=== PATIENT | female | born 1930 | race Caucasian/White ===

== ENCOUNTER 2017-01-19 12:00 | Day surgery (SDC) | payer MEDICARE, BC ==
[~2017-01-19] VITALS: Ht 160 cm; Wt 52.3 kg
[~2017-01-19 12:00] MED LIST: ACIPHEX20 MG PO; BENADRYL25 M2 PO; CALTRATE 600 +1 TAB PO; EVISTA PO; EVISTA60 MG PO; FOSAMAX 10M10 MG/TAB PO; HYCET SOLN PO; LEADER CLE17 GM/Dose PO; LEVBID0.375 MG PO; MIRAPEX0.25 MG PO; PILOCARPINE PO; PROTONIX20 MG PO; RECLAST5 MG/100 M IV
[2017-01-19] MEDS ORDERED: CALCIUM-500 5001 CTB PO (13:10)
[2017-01-19] MEDS ORDERED: MIRAPEX 0.0.125 MG/T PO (13:11)
[2017-01-19] MEDS ORDERED: ISOSOURCE 1.51000 M1 PEG (13:11)
[2017-01-19] MEDS ORDERED: MIRAPEX0.25 MG PO (13:12)
[2017-01-19] MEDS ORDERED: SALAGEN 5MG TAB5 MG PO (13:13)
[2017-01-19] MEDS ORDERED: ZYRTEC 10MG10 MG PEG (13:14)
[2017-01-19] MEDS ORDERED: ZANTAC 150MG T150 MG PEG (13:14)
[2017-01-19] MEDS ORDERED: NYSTATIN OR100 MU/ML PO (13:17)
[2017-01-19 13:28] VITALS: BP 132/55; PULSE 72; TEMP 98.2
[2017-01-19 15:24] LABS: PH 7 (5-8); SQUAMOUS EPITHELIAL 0-2 /hpf; URINE APPEARANCE Clear; URINE BACTERIA None Seen /hpf; URINE BILIRUBIN Negative (NEGATIVE); URINE BLOOD 3+ (NEGATIVE); URINE COLOR Straw; URINE GLUCOSE Negative (NEGATIVE); URINE KETONE Negative (NEGATIVE); URINE RBC >50 /hpf; URINE UROBILINOGEN Negative (NEGATIVE)
== END 2017-01-19 15:00 | disposition home or self-care (01) ==
LOC: SDCO 12:00
PROVIDERS: Urology
DX: N31.9 Neuromuscular dysfunction of bladder, unspecified (principal); N21.0 Calculus in bladder; R33.9 Retention of urine, unspecified; K21.9 Gastro-esophageal reflux disease without esophagitis; M19.90 Unspecified osteoarthritis, unspecified site; M11.20 Other chondrocalcinosis, unspecified site; M81.0 Age-related osteoporosis without current pathological fracture; Z85.118 Personal history of other malignant neoplasm of bronchus and lung

== ENCOUNTER 2017-03-24 11:45 | Emergency (ER) | payer MEDICARE, BC ==
[~2017-03-24] VITALS: Ht 160 cm; Wt 50.0 kg
[~2017-03-24 11:45] MED LIST changes: +CALCIUM-500 5001 CTB PO; +ISOSOURCE 1.51000 M1 PEG; +MIRAPEX 0.0.125 MG/T PO; +NYSTATIN OR100 MU/ML PO; +SALAGEN 5MG TAB5 MG PO; +ZANTAC 150MG T150 MG PEG; +ZYRTEC 10MG10 MG PEG
[2017-03-24 11:47] VITALS: BP 135/65; PULSE 76; TEMP 98
== END 2017-03-24 12:21 | disposition home or self-care (01) ==
LOC: COL.ER 11:45
DX: Z43.1 Encounter for attention to gastrostomy (principal); Z46.89 Encounter for fitting and adjustment of other specified devices

== ENCOUNTER 2017-06-29 13:10 | Observation (INO) | payer MEDICARE, BC ==
[2017-06-29] VITALS (10 sets, daily range): BP systolic 98–123; BP diastolic 43–93; PULSE 71–88; TEMP 97.5–98.5
[~2017-06-29] VITALS: Ht 160 cm; Wt 50.0 kg
[2017-06-29] MEDS ORDERED: MIRAPEX 0.0.125 MG/T PO (14:38)
[2017-06-29] MEDS ORDERED: RESTASIS 60VL OP (14:39)
[2017-06-29] MEDS ORDERED: TRIAMC 0.1 454 TOP (14:41)
[2017-06-29] MEDS ORDERED: BENADRYL E2.5 MG/1 M PEG (14:42)
[2017-06-29] MEDS ORDERED: MIRAPEX0.25 MG PO (14:44)
[2017-06-30 04:00] VITALS: BP 95/47; PULSE 82; TEMP 97.3
[2017-06-30 09:37] VITALS: BP 110/55; BP 89/49; PULSE 75; TEMP 97
[2017-06-30 14:30] VITALS: BP 95/40; PULSE 85; TEMP 98.4
== END 2017-06-30 16:10 | disposition home or self-care (01) ==
LOC: SDCO 13:10 → SURG 17:10
DX: N32.89 Other specified disorders of bladder (principal); N31.9 Neuromuscular dysfunction of bladder, unspecified; R33.9 Retention of urine, unspecified; K21.9 Gastro-esophageal reflux disease without esophagitis; D64.9 Anemia, unspecified; M19.90 Unspecified osteoarthritis, unspecified site; M81.0 Age-related osteoporosis without current pathological fracture; Z85.118 Personal history of other malignant neoplasm of bronchus and lung; Z82.49 Family history of ischemic heart disease and other diseases of the circulatory system; Z80.42 Family history of malignant neoplasm of prostate; Z80.52 Family history of malignant neoplasm of bladder
CPT/HCPCS: C1769; G0378; J0585; J0690; J1100; J1170; J2270; J2405; J2704; J3010; J7120

== ENCOUNTER 2018-09-23 10:50 | Inpatient (IN) | payer MEDICARE, BC ==
[~2018-09-23] VITALS: Ht 160 cm; Wt 50.2 kg
[~2018-09-23 10:50] MED LIST changes: +BENADRYL E2.5 MG/1 M PEG; +RESTASIS 60VL OP; +TRIAMC 0.1 454 TOP
[2018-09-23 12:24] VITALS: BP 93/46; PULSE 96; TEMP 98.7
[2018-09-23] MEDS ORDERED: NEURONTIN300 MG/CAP PO (12:33)
[2018-09-23] MEDS ORDERED: ZITHROMAX 250M250 MG PO (12:33)
[2018-09-23] MEDS ORDERED: ATARAX 25MG25 MG/TAB PO ×2 (12:36→12:37)
[2018-09-23] MEDS ORDERED: TYLENOL 500MG500 MG PO (12:39)
[2018-09-23] MEDS ORDERED: MUCINEX 60600 MG/TA1 (12:41)
--- NOTE | 2018-09-23 13:24 | NUR ---
Patient is alert and oriented. PEG tube was leaking upon arrival, reinforced with gauze. Suprapubic catheter is draining adequately. Patient attempts to clear throat of phlegm, able to get small amount of pink think phlegm out. Suction at bedside. VSS. No O2 needed. Call light within reach and will continue to monitor closely. Awaiting orders from
[2018-09-23 15:46] VITALS: BP 128/68; PULSE 94; TEMP 97.8
--- NOTE | 2018-09-23 17:45 | NUR ---
Fax was sent through pharmacy scanner to have azactam and vancomycin verified by pharmacy before giving these medications. Awaiting response or verification from pharmacy.
--- NOTE | 2018-09-23 19:18 | NUR ---
Patient continues to attempt to cough up phlegm stuck in throat. Suction attempted, but nothing was suctioned. Droplet precautions in place. Patient denies pain. VSS. Patient transferred down for CT prior to shift change. Report given to TRESSA Vazquez.
--- NOTE | 2018-09-23 20:30 | NUR ---
Patient returns from radiology, IV antibiotics ordered earlier in the day are initiated per orders after clarifying with hospitalist. Patient has a significant cough and is producing thick pink mucous with her cough. Patient is alert and oriented, but is unable to move independently due to chronic disease. Feet and legs are moderatly contracted, hands are mostly contracted as well but patient still has some use of her fingers, is able to use soft touch call light. Peg tube in place is clamped, patient usually recieves bolus tube feedings, but is currently NPO for procedure tomorrow. 0ml residual prior to medication administration. Superpubic catheter in place, patient reports it was last changed on or around 09/15/18. Patient denies further needs at this time, call light within reach.
[2018-09-23 21:45] VITALS: BP 142/82; PULSE 112; TEMP 97.8
[2018-09-23 23:25] VITALS: BP 119/72; PULSE 102; TEMP 97.8
[2018-09-24] VITALS (7 sets, daily range): BP systolic 115–145; BP diastolic 68–78; PULSE 66–109; TEMP 97.4–97.9
--- NOTE | 2018-09-24 05:15 | NUR ---
Patient has rested little overnight. Patient continues to have a cough, although it seems to have lessened in severity. Patient continues to have thick pink speutum periodically. Patient remains NPO per order. Patient repositioned several times overnight for comfort. Patient denies pain at this time, soft touch call light within reach.
--- NOTE | 2018-09-24 07:00 | NUR ---
awake resting in bed, bedside shift report received from TRESSA Vazquez
[2018-09-24 07:17] LABS: MEAN CELL VOLUME 85 fl (80.0-100.0); MEAN CORPUSCULAR HGB CONC 33 g/dl (33.0-37.0); MEAN PLATELET VOLUME 8.1 fl (7.4-10.4); PLATELET COUNT 372 K/mm3 (130-400); RED BLOOD COUNT 3.58 M/mm3 (4.10-5.30); REDCELL DISTRIBUTION WIDTH-CV 14.2 % (11.5-14.5)
[2018-09-24 07:23] LABS: BILIRUBIN,TOTAL 0.3 mg/dL (0.0-1.0); CALCIUM 8.9 mg/dL (8.4-10.2); CREATININE, serum 0.26 mg/dL (0.52-1.25); HEMATOCRIT 30.3 % (37.0-47.0); HEMOGLOBIN 9.9 g/dl (12.5-16.0); MEAN CORPUSCULAR HEMOGLOBIN 28 pg (27.0-31.0); POTASSIUM 3.7 mmol/L (3.4-5.0); TOTAL PROTEIN 7.2 gm/dL (6.4-8.2)
[2018-09-24 08:08] LABS: BAND 15 % (0-10); LYMPHOCYTE 8 % (20.0-51.0); NEUTROPHILS 77 % (42.0-75.2)
[2018-09-24 08:10] LABS: PLATELET ESTIMATE NORMAL (NORMAL)
--- NOTE | 2018-09-24 08:20 | NUR ---
resting in bed watching TV, assisted her with taking sips of water and rinsing out her mouth, denies other needs
--- NOTE | 2018-09-24 09:07 | NUR ---
Dr Rainey and care team in to see patient
--- NOTE | 2018-09-24 09:15 | NUR ---
spoke with "Rogers" and will not plan to do bronchoscopy and ok to let her take meds and have feedings, speech therapy notified
--- NOTE | 2018-09-24 09:15 | NUR ---
meds given per peg tube, vascular lab in to complete echo
--- NOTE | 2018-09-24 10:14 | NUR ---
dietitian in to visit with patient
--- NOTE | 2018-09-24 10:42 | NUR ---
physical therapy in to work with patient, sitting up on side of bed exercises with therapist
--- NOTE | 2018-09-24 10:45 | NUR ---
family in to visit, full assessment completed, see interventions for further info
--- NOTE | 2018-09-24 11:04 | NUR ---
Dr Mccloud in to see viktoria
--- NOTE | 2018-09-24 13:00 | NUR ---
appears to be sleeping, in bed with eyes closed, resp quiet and easy
--- NOTE | 2018-09-24 13:41 | NUR ---
resting in bed, taking sips of water and rinses out her mouth and tolerates well
--- NOTE | 2018-09-24 14:10 | NUR ---
speech therapy in to see patient
--- NOTE | 2018-09-24 15:41 | NUR ---
SW met with patient to discuss discharge planning. Patient lives at home alone with 24 hour home health. [facility] does the nursing, [facility] give a bath 2 times a week, and No place like home is there the rest of the time. She is wheelchair bound and has a peg tub for nutrition. She feels that it is going well staying in the home. Her PCP is Dr Edilson Griffith and she obtains her medications from [facility] pharmacy. She has a DPOA and it has been requested. There are no other concerns at this time.
--- NOTE | 2018-09-24 16:00 | NUR ---
tube feeling provided and toelrated well
--- NOTE | 2018-09-24 16:25 | NUR ---
SVN WITH 6O0 MG MUCOMYST GIVEN WITH DUONEB TX. ABOUT TWO MINUTES INTO TX PT INFORMED RT THAT SHE WAS ALLERGIC TO SULFA. RT IMMEDIATELY STOPPED TX AND INFORMED RN AND THEN CALLED DR. HORTON WHO TOLD RT TO CANCEL THE MUCOMYST AND TO TELL RN TO MONITOR PT FOR REMAINDER OF DAY. RT RETURNED TO PT ROOM WITH NEW NEBULIZER AND DUONEB ONLY AND GAVE TX TO PT. PT C/O OF EYES BEING IRRITATED SO RT WIPED THEM WITH A WARM WET WASHCLOTH. PT FELT BETTER. NO C/O BREATHING ISSUES OR ANY OTHER ISSUES PER PT. RT LEFT ROOM AFTER BEING ASSURED BY PT THAT SHE WAS FEELING ALRIGHT.
--- NOTE | 2018-09-24 16:35 | NUR ---
cardiopulmonary came to desk and stated pateint told her she was allergic to sulfa after her mucomyst treatment started, Dr Mccloud was notified by Elaina Crowell therapist and treatment stopped after only a couple of minutes, will monitor
--- NOTE | 2018-09-24 17:00 | NUR ---
repositioned in bed for comfort, denies any shortness of breath
--- NOTE | 2018-09-24 18:55 | NUR ---
bedside shift report given to LISA Mar
--- NOTE | 2018-09-24 20:00 | NUR ---
PT IN BED WITH HOB AT 60 DEGREE ANGLE. PT WATCHING FOOTBALL GAME, AND DENIES PAIN OR DISCOMFORT. PT IS NOT ABLE TO MOVE EXTREMITIES, ALSO HAS CONTRACTIONS OF HANDS AND FEET, AND SKIN IS PALE. DID PT'S EVENING FEEDING THROUGH HER G-TUBE. PT IS AWARE THAT IS NPO, DID ASSIST WITH RINSING HER MOUTH AND BRUSHING HER WELL. NO FURTHER NEEDS AT THIS TIME. CALL LIGHT WITHIN REACH.
--- NOTE | 2018-09-24 21:33 | NUR ---
CALLED YAO YING IN REFERENCE TO PT'S ATARAX TO BE GIVEN AT 2100. ADVISED HAS DOUBLE DOSE. RECEIVED ORDERS FROM YAO APRN TO HOLD ATARAX 37.5 MG TONIGHT AND CHANGE TO 1900 TO START TOMORROW. GIVE ONLY THE ATARAX 50 MG PO TONIGHT.
[2018-09-25 03:08] VITALS: BP 150/83; PULSE 102; TEMP 97.5
--- NOTE | 2018-09-25 05:27 | NUR ---
PT HAS BEEN IN BED WITH HOB AT A 90 DEGREE ANGLE. PT HAD DRIED BLOOD IN NOSE, WHICH I HAD CLEANED FOR PT. PT HAS BEEN SPITTING MOST OF THE NIGHT. PT SPITS UP A THICK, CARRASQUILLO, MUCUS. PT HAD SPIT ALL OVER HER SHEET, SO HER TOP SHEET WAS CHANGED AND SHE WAS ASSISTED WITH BRUSHING HER TEETH. PLACED BUCKET IN FRONT OF HER TO SPIT IN. PT DID FALL ASLEEP FOR A SHORT TIME, BUT NOT VERY LONG. CALL LIGHT WITHIN REACH.
[2018-09-25 07:11] VITALS: BP 132/76; PULSE 88; TEMP 97.6
--- NOTE | 2018-09-25 07:50 | NUR ---
Report received from TRESSA Mar. Pt sleeping soundly in bed. Call light in reach.
--- NOTE | 2018-09-25 07:53 | NUR ---
Pharmacy called in and informed regarding Heparin for DVT and will put it in for pt's DVT order.
[2018-09-25 08:36] LABS: MEAN CELL VOLUME 85 fl (80.0-100.0); MEAN CORPUSCULAR HGB CONC 32 g/dl (33.0-37.0); MEAN PLATELET VOLUME 8.2 fl (7.4-10.4); PLATELET COUNT 357 K/mm3 (130-400); RED BLOOD COUNT 3.56 M/mm3 (4.10-5.30); REDCELL DISTRIBUTION WIDTH-CV 14.4 % (11.5-14.5)
[2018-09-25 08:38] LABS: HEMATOCRIT 30.4 % (37.0-47.0); HEMOGLOBIN 9.8 g/dl (12.5-16.0); MEAN CORPUSCULAR HEMOGLOBIN 28 pg (27.0-31.0)
[2018-09-25 08:46] LABS: CALCIUM 9.1 mg/dL (8.4-10.2); CREATININE, serum 0.33 mg/dL (0.52-1.25); POTASSIUM 3.2 mmol/L (3.4-5.0)
[2018-09-25 08:57] LABS: BAND 9 % (0-10); LYMPHOCYTE 11 % (20.0-51.0); NEUTROPHILS 79 % (42.0-75.2); PLATELET ESTIMATE NORMAL (NORMAL)
--- NOTE | 2018-09-25 09:58 | NUR ---
Pt resting comfortably and denied pain. Pt alert and oriented. pt's daughter walked in to visit. Call light in reach.
--- NOTE | 2018-09-25 10:55 | NUR ---
More family visiting pt in rm. Pt denied pain. No concern. Call light in reach.
[2018-09-25 11:09] VITALS: BP 122/67; PULSE 99; TEMP 97.6
--- NOTE | 2018-09-25 13:55 | NUR ---
Pt resting in bed and requested to use bed acosta. Call light in reach.
[2018-09-25 16:16] VITALS: BP 117/62; PULSE 67
--- NOTE | 2018-09-25 18:42 | NUR ---
Report given to LISA Mar. Pt resting in bed. Call light in reach.
[2018-09-25 19:09] VITALS: BP 123/69; PULSE 107; TEMP 97.7
--- NOTE | 2018-09-25 20:00 | NUR ---
PT IN BED WITH HOB ELEVATED TO 90 DEGREE ANGLE. PT DENIES PAIN, BUT HAS BEEN SPITTING UP MUCUS. PT'S HANDS ARE COLD AND PURPLISH/BLUE IN COLOR. PT'S MOUTH IS DRY AND HAVE BEEN ASSISTING WITH PT RINSING MOUTH OUT. CALL LIGHT WITHIN REACH AND IN VIEW OF NURSES' STATION.
[2018-09-25 23:00] VITALS: BP 142/77; PULSE 92; TEMP 97.6
[2018-09-26 03:20] VITALS: BP 133/71; PULSE 88; TEMP 97.4
[2018-09-26 06:41] LABS: BASO % 0.1 % (0.0-2.0); GRAN # 6.5 (1.4-6.5); GRAN % 83.7 % (42.2-75.2); LYMPH # 0.8 (1.2-3.4); LYMPH % 10.4 % (20.0-51.0); MEAN CELL VOLUME 86 fl (80.0-100.0); MEAN CORPUSCULAR HGB CONC 32 g/dl (33.0-37.0); MEAN PLATELET VOLUME 8.3 fl (7.4-10.4); MONO # 0.4 (0.1-0.6); MONO % 5.2 % (1.7-9.3); PLATELET COUNT 372 K/mm3 (130-400); RED BLOOD COUNT 3.44 M/mm3 (4.10-5.30); REDCELL DISTRIBUTION WIDTH-CV 14.7 % (11.5-14.5)
[2018-09-26 06:46] LABS: HEMATOCRIT 29.4 % (37.0-47.0); HEMOGLOBIN 9.5 g/dl (12.5-16.0); MEAN CORPUSCULAR HEMOGLOBIN 28 pg (27.0-31.0)
[2018-09-26 06:49] LABS: CALCIUM 9.1 mg/dL (8.4-10.2); CREATININE, serum 0.35 mg/dL (0.52-1.25); POTASSIUM 4.1 mmol/L (3.4-5.0)
--- NOTE | 2018-09-26 07:15 | NUR ---
Report received from LISA Mar. Pt in bed resting with eyes closed, will continue to monitor.
--- NOTE | 2018-09-26 07:34 | NUR ---
PT WAS ASKED IF SHE WANTED TO BE REPOSITIONED. PT DECLINED AND ADVISED THAT SHE WAS COMFORTABLE THE WAY SHE IS. PT ALSO, DID NOT WANT HEAD OF BED TO BE MOVED BACK. PT SLEEPING WITH HEAD HANGING FORWARD. PT CONTINUED TO SPIT THROUGHOUT THE NIGHT BUCKET INFRONT OF PT. BUT DID FALL ASLEEP A FEW TIMES AND SLEEPING MORE AT END OF SHIFT. CALL LIGHT WITHIN REACH.
[2018-09-26 08:52] VITALS: BP 124/61; PULSE 86; TEMP 97.4
--- NOTE | 2018-09-26 09:20 | NUR ---
Assessment charted. Tube feeding given per orders, pt tolerated well, PO meds given through tube as well. Pt denies pain. Dressing changed around PEG tube. Suprapubic catheter draining yellow hazy urine to DD in bag at side of bed. No IV site attained. Mepilex dressing to sacrem changed, Stage 1 ulcer present, chronic issue per patient. Will continue to monitor.
[2018-09-26 11:33] VITALS: BP 144/81; PULSE 74; TEMP 97.4
--- NOTE | 2018-09-26 15:24 | NUR ---
SALOMON faxed clinical update to Alyce RICHMOND.
[2018-09-26 16:32] VITALS: BP 128/70; PULSE 99; TEMP 97.4
--- NOTE | 2018-09-26 19:05 | NUR ---
Shift assessment complete. Pt resting in bed, awake, a&o, cooperative c cares. Pt reports "discomfort" to bilat legs, states "it's from my restless leg" assisted to reposition et scheduled meds admin. Pt denies any other pain or c/o. PICC noted to R upper arm; both ports patent. PEG noted, patent. SP cath noted to DD s complication. Pt denies further needs. Bed alarm on. Soft-touch call light in reach. Will continue to monitor.
--- NOTE | 2018-09-26 19:23 | NUR ---
Pt has done well today. Adjusted and repositioned often for comfort, pt able to verbalize desires well and get adjusted for comfort. PICC to ALINA working well. Denies pain. Bedside shift report given to nightshift nurse who will resume care.
[2018-09-27] VITALS (7 sets, daily range): BP systolic 118–150; BP diastolic 58–76; PULSE 60–99; TEMP 97.3–98.4
--- NOTE | 2018-09-27 09:00 | NUR ---
PICC intact right upper arm. With sterile technique right upper arm PICC dressing change done with insertion site cleansed with ChloraPrep 1, gauze removed with no drainage noted, skin prep, StatLock, and Tegaderm applied. Veins are symptoms of IV complications noted. No concerns voiced. Arm wrapped with Pieter to protect catheter.
--- NOTE | 2018-09-27 09:30 | NUR ---
Assessment complete. Pt sitting up in bed, A&O x 3, denies pain at this time. Pt having intermittent episodes of feeling the need to spit but unable to cough anything out at this time. PEG tube without s/s of complications. Suprapubic catheter to DD with dark yellow urine. Double lumen PICC line to right upper arm patent without s/s of infiltration or phlebitis. No further needs reported. Call light in reach.
--- NOTE | 2018-09-27 12:38 | NUR ---
Met with Jim today at bedside. She describes her life as spent sitting up in chair for most of day reading or watching TV. She uses a motorized wheelchair for mobility but requires assist with her transfers. She has been living at home with supportive services from several agencies providing 24/04 care. Her [facility] a resident at [facility]. Her daughter Cici Abraham is her DPOA-HC and lives in [place] but teaches at [employer]. Pt presents that she know she will need antibiotics for a period of time and is hoping that she and her can be together in the same fci. Having as much independence as her limiting health will allow is very important to the patient. We did discuss local facilities that might be of interest and what palliative care involves. We also discussed code status and after talking pt feels she would not want to be on a ventilator or experience broken ribs and would not want to be resuscitated. This was also discussed with her daughter Cici by phone and relayed to Sara BOBBY. Will be available to provide support throughout her hospital stay.
--- NOTE | 2018-09-27 15:10 | NUR ---
DR would like patient to go to skilled placement for IV antibiotics. [facility] like [facility]. SALOMON called [facility] and made referral. SALOMON left message for patients daughter.
--- NOTE | 2018-09-27 16:30 | NUR ---
SALOMON called patients matteo Natarajan ([phone]) who will be transporting patient if accepted to swing bed. He reports he will be here around 9:30-10 am. SALOMON will call [facility] first thing in the am to see if they are able to accept and inform Delgado when known.
--- NOTE | 2018-09-27 18:40 | NUR ---
Pt sitting up in bed, setup for tube feeding. Residual checked and full syringe of undigested previous feeding. Feeding held at this time. Tube flushed with free water and sched meds given per orders. No further needs reported. Call light in reach. Family at bedside.
--- NOTE | 2018-09-27 19:13 | NUR ---
Report with LISA Mar.
--- NOTE | 2018-09-27 20:49 | NUR ---
PT IN BED WITH BED IN CHAIR POSITION. PT ADVISES THAT SHE IS COMFORTABLE. PT DENIES PAIN OR DISCOMFORT AND HAS CALL LIGHT WITHIN REACH. NO NEEDS AT THIS TIME.
--- NOTE | 2018-09-28 03:04 | NUR ---
PT WAS REPOSITIONED TO RIGHT SIDE, BECAUSE HER TAILBONE WAS KIND OF HURTING HER. EARLIER WHEN ASKED TO REPOSITION, PT DECLINED AND STATED THAT SHE WAS COMFORTABLE AND DID NOT WANT TO MOVE. PT WAS ALSO GIVEN WATER THROUGH PEG-TUBE. PT HAS BEEN AWAKE MOST OF THE NIGHT WATCHING TV. PT DID HAVE AN EPISODE OF SPITTING AND CARRASQUILLO MUCUS CAME UP. PT HAS NO FURTHER NEEDS AT THIS TIME, CALL LIGHT WITHIN REACH.
[2018-09-28 03:26] VITALS: BP 98/53; PULSE 94; TEMP 97.5
--- NOTE | 2018-09-28 05:30 | NUR ---
PT HAD FALLEN ASLEEP. PT DOES NOT APPEAR TO BE IN ANY PAIN OR DISCOMFORT, RESP EVEN AND UNLABORED. CALL LIGHT WITHIN REACH.
[2018-09-28 07:15] VITALS: BP 99/40; PULSE 93; TEMP 97.6
--- NOTE | 2018-09-28 07:24 | NUR ---
Pt is sleeping soundly in bed.
[2018-09-28] MEDS ORDERED: IPRATROPIUM BROM3 M1 IH (08:52)
[2018-09-28] MEDS ORDERED: BD POSIFLUSH SF10 ML IV ×2 (08:52)
[2018-09-28] MEDS ORDERED: PREDNISONE10 MG PEG (08:54)
[2018-09-28] MEDS ORDERED: VANCOMYCIN 11 G/VIA1 IV (09:08)
[2018-09-28] MEDS ORDERED: MERREM VIA500 MG/VIA IV (09:09)
--- NOTE | 2018-09-28 09:23 | NUR ---
SALOMON called [facility] at [facility] who provided number for Dr Griffith [phone]. Dr Ivan called doc to doc and patient was accepted. Discharge orders have been sent to [place]. Patients daughter, Cici, called to inform sw that her brother was on his way with wheelchair and wheelchair van to transport patient. She also asked this sw to send patients clinical information to Maximino at [facility] who they are considering for wood router hand care after skilled stay. SALOMON talked with maximino to clarify what was needed. Information faxed. Patient is Discharging today to [facility] for [facility] at their swing bed. She will need 3 weeks of IV antibiotics, PT, ST, and OT.
[2018-09-28 09:50] VITALS: BP 99/40; PULSE 93; TEMP 97.6
--- NOTE | 2018-09-28 11:06 | NUR ---
Pt was transfered via private vehicle to swing bed in [place]. PICC line remained in place per order. Report called to nurse Charlene.
--- NOTE | 2018-09-28 11:06 | NUR ---
SW met with patient and son to present IM however they didnt want to sign until daughter/DPOA arrived. SW not informed when Cici arrived and they left while SW in another room. IM not presented due to this.
== END 2018-09-28 11:06 | disposition swing bed (61) | DRG 177 ==
LOC: MEDICAL 10:50
PROVIDERS: Physician Assistant; ADMIT Internal Medicine
PROC: 02HV33Z Insertion of Infusion Device into Superior Vena Cava, Percutaneous Approach (ICD-10-PCS; principal; 2018-09-26)
DX: J69.0 Pneumonitis due to inhalation of food and vomit (principal); J85.1 Abscess of lung with pneumonia; J85.0 Gangrene and necrosis of lung; E44.0 Moderate protein-calorie malnutrition; Z68.1 Body mass index [BMI] 19.9 or less, adult; J47.0 Bronchiectasis with acute lower respiratory infection; Z66 Do not resuscitate; Z85.110 Personal history of malignant carcinoid tumor of bronchus and lung; G72.41 Inclusion body myositis [IBM]; N31.9 Neuromuscular dysfunction of bladder, unspecified; Z87.891 Personal history of nicotine dependence; D64.9 Anemia, unspecified; G25.81 Restless legs syndrome
CPT/HCPCS: 99222-AI; 99232-AI; 99233-AI; 99239; A4216; C1751; J1644; J1956; J2185; J2920; J3370; J7050; J7512; Q9967